=== PATIENT | male | born 1955 | race Caucasian/White ===

== ENCOUNTER → 2020-05-19 10:35 | Outpatient (BNVA) | payer SELFPAY | PROVIDERS: Family Provider Family Medicine; PCP Family Medicine; Visit Provider Family Medicine | DX: I10 Essential (primary) hypertension (principal); E78.00 Pure hypercholesterolemia, unspecified; Z68.34 Body mass index [BMI] 34.0-34.9, adult; F17.211 Nicotine dependence, cigarettes, in remission | CPT/HCPCS: 80053; 80061; 85025 ==

== ENCOUNTER → 2021-06-04 11:57 | Outpatient (BNVA) | payer SELFPAY | PROVIDERS: Family Provider Family Medicine; PCP Family Medicine; Visit Provider Family Medicine | DX: J01.00 Acute maxillary sinusitis, unspecified (principal); I10 Essential (primary) hypertension; I87.2 Venous insufficiency (chronic) (peripheral); F17.211 Nicotine dependence, cigarettes, in remission | CPT/HCPCS: 80053; 85025 ==

== ENCOUNTER → 2022-08-16 11:01 | Outpatient (BNVA) | payer MEDICARE, MEDICAID, SELFPAY | PROVIDERS: Family Provider Family Medicine; PCP Family Medicine; Visit Provider Family Medicine | DX: K42.9 Umbilical hernia without obstruction or gangrene (principal); I10 Essential (primary) hypertension; Z00.00 Encounter for general adult medical examination without abnormal findings; J31.0 Chronic rhinitis | CPT/HCPCS: 80053; 85025 ==

== ENCOUNTER → 2022-08-25 14:40 | Outpatient (BNVA) | payer MEDICARE, MEDICAID, SELFPAY | PROVIDERS: Family Provider Family Medicine; PCP Family Medicine; Visit Provider Surgery | DX: Z86.010 Personal history of colon polyps (principal); K42.9 Umbilical hernia without obstruction or gangrene | CPT/HCPCS: 99203 ==

== ENCOUNTER 2022-10-15 06:26 | Day surgery (SDC) | payer MEDICARE, MEDICAID, SELFPAY ==
[2022-10-13 12:03] VITALS: BMI 33.9
--- NOTE | 2022-10-15 06:41 | W.PM.OPSFHP ---
Same Day Surgery H&P Indication for Procedure/HPI DATE OF PROCEDURE: October 15, 2022 CHIEF COMPLAINT/INDICATIONFOR SURGICAL PROCEDURE: History of colon polyps PREOP DIAGNOSIS: History of colon polyps PLANNED PROCEDURE: Operation Date: 10/15/22 08:00 Proposed Procedures p Colonoscopy 88734,Z86.010(Not Applicable) - Reggei Howard MD 08/25/2022 This is a pleasant 67 years old gentleman referred to my practice with history of colon polyps as he did have a colonoscopy back in 2011.? Polyps were removed.? Also he does have an umbilical hernia for quite some time.? Has been reducible.? Patient denies any bleeding per rectum and he reports history of colon cancer of his father at age of 62.? Patient comes today to discuss potential umbilical hernia repair as it has been causing some discomfort.? And also to discuss surveillance colonoscopy. 10/15/2022 Patient comes today for surveillance colonoscopy ROS All systems have been reviewed negative except as for the above or per problem list. Medications/Allergies* Home Medications Medication Instructions Recorded Confirmed Type diphenhydramine HCl 25 mg tablet 25 mg PO ONCE PRN Allergy Symptoms 12/05/19 10/13/22 History (Benadryl Allergy) multivitamin (Daily Multi-Vitamin 1 tab PO QAM 12/05/19 10/13/22 History tablet) Allergies/Adverse Reactions Allergy/AdvReac Type Severity Reaction Status Date / Time lisinopril Allergy Unknown cough Verified 08/27/22 07:07 Pertinent History/Comorbid Conditions* Medical History (Updated 08/27/22 @ 07:07 by Reggie Howard MD) Benign essential HTN Chronic rhinitis GERD (gastroesophageal reflux disease) Heart beat abnormality Venous (peripheral) insufficiency Family History (Updated 08/25/22 @ 15:12 by MEGHAN Ku) Cancer Father colon cancer Hypertension Social History Smoking and tobacco status: former smoker Alcohol intake: never Pertinent Exam Findings alert, oriented x 3, regular rate & rhythm and procedure specific exam findings (Abdominal exam nontender nondistended soft reducible umbilical hernia) Recommendations Surgery/Procedure today (Colonoscopy with possible biopsy) Coding Level of Care Code Acute Die Designer Apprentice for Sorin Okeefe
[2022-10-15 06:45] VITALS: BP 172/86; PULSE 86; RESP 18; TEMP 37; O2SAT 97
[2022-10-15] MEDS: sodium chloride 0.9% 1,000 ML 30 ML IV (06:56)
--- NOTE | 2022-10-15 07:39 | ANES.PREANE2 ---
Pre-Anesthetic Assessment Height/Weight: Height 1.83 m Weight 113.398 kg Temp Pulse Resp BP Pulse Ox O2 Del Method 98.6 F 86 18 172/86 97 10/15/22 06:45 10/15/22 06:45 10/15/22 06:45 10/15/22 06:45 10/15/22 06:45 10/15/22 06:45 Preop Diagnosis: History of colon polyps Operation Date: 10/15/22 08:00 Proposed Procedures p Colonoscopy 01734,Z86.010(Not Applicable) - Reggie Howard MD Familial anesthetic complications: None Was Beta Mariana taken within 24 hours: N/A Was Clonidine taken within 24 hours: N/A Last intake: Intake Last Liquid Date 10/14/22 Last Liquid Time 22:00 Last Solid Date 10/13/22 Last Solid Time 22:00 Social No alcohol and No tobacco Exam alert, oriented x 3, clear to auscultation bilaterally and regular rate & rhythm Airway Mallampati: Class IV Dentition: full CV/HEM Hypertension GI Gastroesophageal Reflux Disease Anesthetic Plan ASA status: 3 Anesthesia: MAC Risk of > 500 ml blood loss (7ml/kg in children): No Medications/Allergies Home Medications Medication Instructions Recorded Confirmed Last Taken Type diphenhydramine HCl 25 mg tablet 25 mg PO ONCE PRN Allergy Symptoms 12/05/19 10/13/22 10/14/22 History (Benadryl Allergy) multivitamin (Daily Multi-Vitamin 1 tab PO QAM 12/05/19 10/13/22 10/13/22 History tablet) potassium chloride 20 mEq 20 meq PO DAILY 90 days #90 tabs 05/14/22 10/13/22 10/13/22 Rx tablet,extended release amlodipine 5 mg tablet 5 mg PO DAILY 90 days #90 tabs 08/16/22 10/13/22 10/15/22 05:00 Rx famotidine 20 mg tablet See Rx Instructions .Route 08/16/22 10/13/22 10/14/22 Rx .COMPLEX #180 tabs hydrochlorothiazide 25 mg tablet See Rx Instructions .Route 08/16/22 10/13/22 10/14/22 Rx .COMPLEX #90 tabs losartan 100 mg tablet See Rx Instructions .Route 08/16/22 10/13/22 10/15/22 05:00 Rx .COMPLEX #90 tabs furosemide 40 mg tablet See Rx Instructions .Route 09/13/22 10/13/22 10/13/22 Rx .COMPLEX #90 tabs Allergies Allergy/AdvReac Type Severity Reaction Status Date / Time lisinopril Allergy Unknown cough Verified 08/27/22 07:07 Current Medications Generic Name Dose Route Start Last Admin Trade Name Freq PRN Reason Stop Dose Admin Sodium Chloride 1,000 mls @ 30 mls/hr 10/15/22 06:45 10/15/22 06:56 Sodium Chloride 0.9% IV 10/16/22 06:44 30 mls/hr .Q24H STEVIE Administration PFSH Anesthesia Medical History Benign essential HTN Chronic rhinitis GERD (gastroesophageal reflux disease) Heart beat abnormality Venous (peripheral) insufficiency Family History Father Cancer colon cancer Other Hypertension Social History Smoking and tobacco status: former smoker Alcohol intake: never Data Anesthesia Cardiac Studies: No Data to Display
[2022-10-15 08:18] VITALS: BP 129/80; PULSE 62; RESP 18; TEMP 36.6; O2SAT 95
[2022-10-15 08:32] VITALS: BP 112/81; PULSE 62; RESP 18; O2SAT 98
--- NOTE | 2022-10-15 12:40 | ANE.PACU2 ---
Inpatient post-anesthesia follow up: Airway intact: Yes Vital signs: Temperature 97.9 F Pulse Rate 62 Respiratory Rate 18 Blood Pressure 112/81 Pulse Oximetry 98 Oxygen Delivery Me thod Room Air Oxygen Flow Rate Fraction of Inspir ed Oxygen Hydration adequate: Yes Nausea and vomiting: No Pain level: 1 Mental status: Baseline
== END 2022-10-15 08:55 | disposition home or self-care (01) ==
PROVIDERS: PCP Family Medicine; Visit Provider Surgery
PROC: 0DJD8ZZ Inspection of Lower Intestinal Tract, Via Natural or Artificial Opening Endoscopic (ICD-10-PCS; CPT 45378; principal; 2022-10-15 08:00)
DX: Z12.11 Encounter for screening for malignant neoplasm of colon (principal); Z86.010 Personal history of colon polyps; I10 Essential (primary) hypertension; K21.9 Gastro-esophageal reflux disease without esophagitis; Z87.891 Personal history of nicotine dependence; K57.30 Diverticulosis of large intestine without perforation or abscess without bleeding
CPT/HCPCS: 45378; J2704; J7030

== ENCOUNTER → 2023-07-21 13:20 | Outpatient (BNVA) | payer MEDICARE, MEDICAID, SELFPAY | PROVIDERS: PCP Family Medicine; Visit Provider Nurse Practitioner | DX: M79.641 Pain in right hand (principal) | CPT/HCPCS: 73130 ==

== ENCOUNTER → 2023-11-10 14:49 | Outpatient (BNVA) | payer MEDICARE, MEDICAID, SELFPAY | PROVIDERS: PCP Family Medicine; Visit Provider Family Medicine | DX: I10 Essential (primary) hypertension (principal) | CPT/HCPCS: 80053; 85025 ==

== ENCOUNTER → 2023-12-27 12:54 | Outpatient (BNVA) | payer MEDICARE, MEDICAID, SELFPAY | PROVIDERS: PCP Family Medicine; Visit Provider Family Medicine | DX: E87.6 Hypokalemia (principal) | CPT/HCPCS: 80053 ==

== ENCOUNTER → 2024-10-16 11:11 | Outpatient (BNVA) | payer MEDICARE, MEDICAID, SELFPAY | PROVIDERS: PCP Family Medicine; Visit Provider Family Medicine | DX: I87.2 Venous insufficiency (chronic) (peripheral) (principal); I35.1 Nonrheumatic aortic (valve) insufficiency | CPT/HCPCS: 80053; 83880; 85025 ==

== ENCOUNTER 2024-11-12 09:46 | Outpatient (CLI) | payer MEDICARE, MEDICAID, SELFPAY ==
--- NOTE | 2024-11-12 10:00 | USCV_ITS ---
Rashaad Kay Age: 69 Gender: M : 1955 Exam Date: 11/12/2024 09:55 Ordering Phys: Chris James MD Technologist: CT Exam Location: [facility] Indication: edema BP: 152 / 76 HR: 60 Rhythm: Sinus Technical Quality: Technically difficult study MEASUREMENTS (Male / Female) Normal Values 2D ECHO LVOT Diameter 2.3 cm LV Ejection Fraction MOD 4C 71.1 % LV Ejection Fraction MOD 2C 71.1 % LV Ejection Fraction 2C AL 71.1 % LA Diameter 3.5 cm RA Systolic Volume 4C AL 38.6 ml RA Systolic Volume 4C MOD 36.6 ml LA Sys Volume AL 58.3 cm cubed LA Sys Volume Index AL 22.2 cm cubed/m squared Aorta at Sinotubular Diameter 2.8 cm M-MODE LA Ao Ratio MM 1.4 AV Cusp Separation MM 2.5 cm DOPPLER AV Peak Velocity 205.0 cm/s LVOT Peak Velocity 111.0 cm/s AV Area Cont Eq vti 2.3 cm squared AV Area Cont Eq pk 2.2 cm squared MV Peak Velocity 127.0 cm/s MV Area PHT 2.3 cm squared TV Peak E Velocity 82.0 cm/s PV Peak Velocity 125.0 cm/s FINDINGS Left Ventricle Left ventricle is normal in size. LV systolic function is normal with EF of 55-60%. No regional wall motion abnormality was seen. Grade 1 diastolic dysfunction Right Ventricle Normal in size and function Right Atrium Normal in size Left Atrium Normal in size Mitral Valve Structurally normal mitral valve. Trace mitral regurgitation. Aortic Valve Structurally normal aortic valve. No significant stenosis. Mild aortic regurgitation. Tricuspid Valve Mild tricuspid regurgitation. Insufficient TR jet to calculate RVSP Pulmonic Valve Not well visualized Pericardium Normal Aorta Normal in size IVC Not visualized CONCLUSIONS LV systolic function is normal with EF of 55-60% Grade 1 diastolic dysfunction Trace mitral regurgitation Mild aortic regurgitation Mild tricuspid regurgitation No comparison studies are available. Yousuf Bacon MD (Electronically Signed) Final Date: 15 November 2024 11:06 S
== END 2024-11-12 09:47 | disposition home or self-care (01) ==
PROVIDERS: PCP Family Medicine; Visit Provider Family Medicine
DX: I50.30 Unspecified diastolic (congestive) heart failure (principal)
CPT/HCPCS: 93306

== ENCOUNTER → 2024-11-30 10:41 | Outpatient (BNVA) | payer MEDICARE, MEDICAID, SELFPAY | PROVIDERS: PCP Family Medicine; Visit Provider Nurse Practitioner | DX: R68.89 Other general symptoms and signs (principal) | CPT/HCPCS: 87400; 87426 ==

== ENCOUNTER 2025-05-14 09:10 | Outpatient (CLI) | payer MEDICARE, SELFPAY ==
--- NOTE | 2025-05-14 09:18 | XR_ITS ---
WS: [id number] Thoracic spine, 3 views, 05/14/2025 Clinical Data: radicular pain at t9 distribution Comparison: None. Findings: No compression fractures are seen. The disc heights are normal. There are spurs of the thoracic vertebral bodies. The paravertebral regions are normal. XR/XR thoracic spine 2V [id number] Impression: Osteoarthritis of the thoracic vertebral bodies.
== END 2025-05-14 09:11 | disposition home or self-care (01) ==
PROVIDERS: PCP Family Medicine; Visit Provider Family Medicine
DX: M47.814 Spondylosis without myelopathy or radiculopathy, thoracic region (principal)
CPT/HCPCS: 72070

== ENCOUNTER → 2025-07-26 15:17 | Outpatient (BNVA) | payer MEDICARE, SELFPAY | PROVIDERS: PCP Family Medicine; Visit Provider Nurse Practitioner | DX: R50.9 Fever, unspecified (principal) | CPT/HCPCS: 87426 ==

== ENCOUNTER → 2025-08-02 09:32 | Outpatient (BNVA) | payer MEDICARE, SELFPAY | PROVIDERS: PCP Family Medicine; Visit Provider Nurse Practitioner | DX: I10 Essential (primary) hypertension (principal) | CPT/HCPCS: 80053; 80061; 84443; 85025 ==

== ENCOUNTER → 2025-11-07 11:30 | Outpatient (BNVA) | payer MEDICARE, SELFPAY | PROVIDERS: PCP Nurse Practitioner; Visit Provider Nurse Practitioner | DX: J02.9 Acute pharyngitis, unspecified (principal) | CPT/HCPCS: 87071; 87880 ==